=== PATIENT | female | born 1950 | race African-American/Black ===

== ENCOUNTER 2019-08-05 07:45 | Inpatient (IN) ==
--- NOTE | 2019-07-27 14:42 | EKG Report ---
Test Performed on : 07/27/2019 2:22:41 PM Test Reason : PAT Blood Pressure : / mmHG Vent. Rate : 080 BPM Atrial Rate : 080 BPM P-R Int : 156 ms QRS Dur : 090 ms QT Int : 384 ms P-R-T Axes : 056 012 073 degrees QTc Int : 442 ms Sinus rhythm. with fusion complexes and premature atrial complexes. with aberrant conduction. Anterior infarct , age undetermined Abnormal ECG When compared with ECG of 27-NOV-2017 13:14, fusion complexes are now present aberrant conduction. is now present T wave inversion now evident in Anterior leads Confirmed by Yosef LAWRENCE, Isidoro Keane ([id number]) on 07/28/2019 7:41:52 AM
[2019-07-27 16:23] LABS: HEMOGLOBIN A1C 5.2 % (4.8-6.0)
[2019-07-29 14:42] LABS: URINE SOURCE CLEAN CATCH
[2019-07-29 15:01] LABS: BASO# 0.05 X1000 (0.0-0.2); BASO% 0.8 % (0.0-0.8); EOS# 0.29 X1000 (0.0-0.7); EOS% 4.4 % (0.0-10.0); HEMATOCRIT 34.1 % (37.0-47.0); HEMOGLOBIN 11.3 g/dL (12.0-16.0); IMM GRAN# 0.05 X1000 (0.0-0.04); IMM GRAN% 0.8 % (0.0-0.5); LYMPH% 37.7 % (20.5-51.1); MCH 32.8 PG (27-31); MCHC 33.1 g/dL (33-37); MCV 98.8 FL (81-99); MONO# 0.47 X1000 (0.11-0.59); MONO% 7.1 % (1.7-9.3); MPV 9.9 FL (7.4-10.4); NEUT# 3.28 X1000 (1.4-6.5); NEUT% 49.2 % (42.2-75.2); PLT 298 X1000 (130-400); RBC 3.45 XMIL (4.2-5.4); RDW 12.5 % (11.5-14.5); WBC 6.64 X1000 (4.8-10.8)
[2019-07-29 15:02] LABS: BILIRUBIN URINE NEGATIVE (NEGATIVE); BLOOD URINE TRACE (NEGATIVE); COLOR YELLOW; GLUCOSE URINE NEGATIVE (NEGATIVE); INR 1.06; KETONE URINE NEGATIVE (NEGATIVE); LEUKOCYTES URINE NEGATIVE (NEGATIVE); NITRITE URINE NEGATIVE (NEGATIVE); PH URINE 5.5; PROTEIN URINE NEGATIVE (NEGATIVE); PROTIME 13.9 Seconds (11.0-16.0); SP GRAVITY URINE 1.015; TURBIDITY URINE HAZY (CLEAR); UR EPITHELIAL CELLS >10 /HPF (<10); URINE BACTERIA NEGATIVE /HPF; URINE RBC <10 /HPF (<10); URINE WBC <10 /HPF (<10); UROBILINOGEN URINE NORMAL (NORMAL)
[2019-07-29 15:03] LABS: PTT 32.2 Seconds (22.3-41.8)
[2019-07-29 15:13] LABS: CALCIUM 9.3 mg/dL (8.8-10.2); CREATININE 1.8 mg/dL (0.5-0.9)
[2019-08-05] MEDS ORDERED: NORCURON ONE (08:18)
[2019-08-05] MEDS ORDERED: COLACE ONE (08:18)
[2019-08-05] MEDS ORDERED: SODIUM CHLORIDE 0.9% 10 ML ONE (08:18)
[2019-08-05] MEDS ORDERED: XYLOCAINE-MPF 2% ONE (08:18)
[2019-08-05] MEDS ORDERED: REGLAN ONE (08:18)
[2019-08-05] MEDS ORDERED: QUELICIN (DOSE) ONE (08:18)
[2019-08-05] MEDS ORDERED: PEPCID ONE (08:18)
[2019-08-05] MEDS ORDERED: KEFZOL 1 GM/D5W 1 GM/50 ML IVPB ONE (08:19)
[2019-08-05] MEDS ORDERED: CELEBREX ONE (08:19)
[2019-08-05] MEDS ORDERED: LYRICA ONE (08:19)
[2019-08-05] MEDS ORDERED: DIPRIVAN 1% ONE (08:19)
[2019-08-05] MEDS ORDERED: LR 1,000 ML ONE (08:19)
[2019-08-05] MEDS ORDERED: DURAMORPH ONE (09:33)
[2019-08-05] MEDS ORDERED: MARCAINE 0.25% PF ONE (09:33)
[2019-08-05] MEDS ORDERED: TORADOL ONE (09:33)
[2019-08-05] MEDS ORDERED: EXPAREL 1.3% ONE (09:34)
[2019-08-05] MEDS ORDERED: CYKLOKAPRON 1,000 MG/NS 1,000 MG/100 ML IVPB ONE (09:34)
[2019-08-05] MEDS ORDERED: SODIUM CHLORIDE 0.9% ONE (09:34)
[2019-08-05] MEDS ORDERED: FENTANYL ONE (10:25)
[2019-08-05] MEDS ORDERED: EPHEDRINE ONE (10:39)
[2019-08-05] MEDS ORDERED: DECADRON ONE (10:50)
[2019-08-05] MEDS ORDERED: ZOFRAN ONE (10:53)
[2019-08-05] MEDS ORDERED: OFIRMEV 1000 MG/ISOTONIC SOLN 1,000 MG/100 ML BOTTLE ONE (10:57)
[2019-08-05 11:22] LABS: URINE SOURCE CATH
[2019-08-05 11:27] LABS: BILIRUBIN URINE NEGATIVE (NEGATIVE); BLOOD URINE TRACE (NEGATIVE); COLOR YELLOW; GLUCOSE URINE NEGATIVE (NEGATIVE); KETONE URINE NEGATIVE (NEGATIVE); LEUKOCYTES URINE NEGATIVE (NEGATIVE); NITRITE URINE NEGATIVE (NEGATIVE); PROTEIN URINE NEGATIVE (NEGATIVE); SP GRAVITY URINE 1.016; TURBIDITY URINE CLEAR (CLEAR); UROBILINOGEN URINE NORMAL (NORMAL)
[2019-08-05 11:28] LABS: UR EPITHELIAL CELLS <10 /HPF (<10); URINE BACTERIA NEGATIVE /HPF; URINE RBC <10 /HPF (<10); URINE WBC <10 /HPF (<10)
[2019-08-05] MEDS ORDERED: NS 1,000 ML ONE (12:47)
[2019-08-05] MEDS ORDERED: DILAUDID ONE (12:50)
--- NOTE | 2019-08-05 13:17 | Diag Imaging Result Doc PS360 ---
EXAM: SHOULDER 1 VIEW LEFT INDICATION: post op TECHNIQUE: One view COMPARISON: None. FINDINGS: There has been a very recent left shoulder arthroplasty. The arthroplasty hardware is in the expected position. At the proximal humeral shaft adjacent to the skin of the humeral component of the hardware, there is a small linear lucency that is suspicious for a nondisplaced periprosthetic fracture. There has been a recent preoperative studies available. No other fracture or significant intrinsic osseous lesion is appreciated. Surrounding soft tissues are grossly unremarkable by plain radiograph. IMPRESSION: Small linear lucency at the proximal humeral shaft as described that is suspicious for a nondisplaced periprosthetic fracture. Electronically signed by Reginald Walker 08/05/2019 1:14 PM
[2019-08-05] MEDS ORDERED: NS 1,000 ML IV SCH (14:15)
[2019-08-05] MEDS ORDERED: OXY IR PO PRN (14:15)
[2019-08-05] MEDS ORDERED: MORPHINE IV PRN ×3 (14:15)
[2019-08-05] MEDS ORDERED: ZOFRAN PO PRN (14:15)
--- NOTE | 2019-08-05 15:01 | OPERATIVE NOTE ---
PROCEDURE DATE : 08/05/2019 PREOPERATIVE DIAGNOSIS: Left glenohumeral arthritis with chronic rotator cuff tear. POSTOPERATIVE DIAGNOSIS: Left glenohumeral arthritis with chronic rotator cuff tear. PROCEDURE: Left reverse total shoulder arthroplasty with DePuy Delta Xtend, size 8 press-fit stem, a 38 + 3 humeral cup, a 38 + 2 mm lateralized Eccentric Glenosphere and a standard metaglene. SURGEON: Colby Barrera MD EXECUTIVE MANAGER: BAILEY Elizondo, who was necessary for proper positioning, retraction and manipulation of the extremity during the case. SECOND ENVIRONMENTAL PROGRAMS MANAGER: BAILEY Simon and Ajith Brown RN. ANESTHESIA: General. IV FLUIDS: 2000 mL lactated Ringer's. ESTIMATED BLOOD LOSS: 100 mL. COMPLICATIONS: None. INDICATION: The patient is a 69-year-old female, chronic history of pain and discomfort in her left shoulder. Her pain has progressed to affect her activities of daily living. Radiographic studies reveal findings consistent with glenohumeral arthritis and chronic retracted rotator cuff tear. Given the patient's findings, recommendation to proceed with left reverse total shoulder arthroplasty was offered. The risks and benefits of surgery were explained, including the risks of anesthesia, , bleeding, infection, failure to relieve pain, postoperative stiffness, nerve injury, blood clots, and other imponderables. All questions were answered. The patient and family wished to proceed with surgery. DETAILS OF OPERATION: The patient was taken to the operating room and placed supine on the operating table. Once adequate anesthesia was obtained, she was placed in semi- Bright beach chair position. The left shoulder was subsequently prepped and draped in usual sterile fashion. A standard deltopectoral incision was made with a skin knife. Hemostasis was obtained using electrocautery. The deltopectoral interval was then developed. Retractors were then placed. The clavipectoral fascia was then elevated as well as the retractor was placed in deep conjoined tendon. The subscapularis tendon was then identified and stay suture was placed. Approximately 1 c m medial to its insertion, it was released and was dislocated anteriorly. The patient did have evidence of chronic rotator cuff tear. The biceps tendon was released. A starting reamer was then passed in the intramedullary canal. Sequential reaming was conducted up to size 8. Intramedullary guide with the proximal humeral cutting block was pinned in position approximately 15 degrees of retroversion. The proximal humeral head was then resected. A protective disk was then placed. Attention was then turned to the glenoid. Circumferential dissection was performed with a deep knife. A guide was then placed in position and some tightness with difficulty of the exposure, therefore, a few millimeters of the proximal humerus was resected. Protective disk placed once again and the retractors were placed. The guidepin was placed in to position with guide. Reaming was then conducted. Central hole was then dilated and guidepin was removed. The wound was copiously irrigated with antibiotic pulsatile lavage. A standard metaglene was then impacted into position. Two locking screws were then placed as well as 2 nonlocking screws. The wound was copiously irrigated once again. A 38 eccentric +2 lateralized Glenosphere was then placed with eccentricity placed inferiorly. Attention then turned to the proximal humerus. The intramedullary guide was placed in position the proximal humerus was reamed. After this, the intramedullary canal was copiously irrigated with antibiotic pulsatile lavage. A size 8 Delta Xtend press-fit stem was then placed. Trial cup sizer was then placed and 38+ 3 humeral cup had excellent stability and range of motion. The trial cup was removed. The wound was copiously irrigated once again. A 38+ 3 humeral cup was then placed. The shoulder was reduced, carried through range of motion, had excellent stability and range of motion. Exparel was placed in the deep soft tissue. The wound was copiously irrigated. A #2 FiberWire was used to repair the subscapularis tendon. Remaining Exparel was placed in deep soft tissue as well as subcutaneous tissue. The wound was irrigated once again. A 2-0 Vicryl was used to repair the subcutaneous tissue, followed by running 2-0 Prolene. Benzoin and Steri-Strips applied. Adaptic, sterile 4x4, ABD pad, and tape was applied the left shoulder followed by shoulder immobilizer. All counts were correct. The patient tolerated the procedure well and was transferred to the recovery room in stable condition. cc: Colby Barrera MD MTDD
[2019-08-05] MEDS: TYLENOL PO SCH (17:39)
[2019-08-05] MEDS: KEFZOL 1 GM/D5W 1 GM/50 ML IVPB IV SCH (17:51)
[2019-08-05] MEDS: PERIDEX MT SCH (20:36)
[2019-08-05] MEDS: OXY IR PO PRN (20:37)
[2019-08-05] MEDS: PRILOSEC PO SCH (20:38)
[2019-08-06] MEDS: TYLENOL PO SCH ×3 (02:18→12:50)
[2019-08-06] MEDS: KEFZOL 1 GM/D5W 1 GM/50 ML IVPB IV SCH (02:59)
[2019-08-06] MEDS: PATIENT'S OWN MED OPH SCH ×2 (04:05→09:13)
[2019-08-06 06:45] LABS: HEMATOCRIT 29.8 % (37.0-47.0); HEMOGLOBIN 9.9 g/dL (12.0-16.0)
[2019-08-06 07:00] LABS: CREATININE 1.4 mg/dL (0.5-0.9)
[2019-08-06] MEDS ORDERED: SYNTHROID PO SCH (07:00)
--- NOTE | 2019-08-06 07:04 | ORTHOPAEDICS PROGRESS NOTE ---
DATE: 08/06/2019 SUBJECTIVE: The patient is a pleasant 69-year-old female who is 1 day status post left reverse total shoulder arthroplasty. She is currently resting comfortably. OBJECTIVE: The patient's dressing is intact. She is grossly neurovascularly intact distally. Able to flex her fingers. Good capillary refill distally. Her labs are pending. IMPRESSION: Postoperative day #1 status post left reverse shoulder arthroplasty. PLAN: At this point, we will plan on discharging home. The patient will follow up in the office on 08/17/2019. We will arrange for outpatient physical therapy. cc: Colby Barrera MD
[2019-08-06] MEDS ORDERED: LIPITOR PO SCH (09:00)
[2019-08-06] MEDS ORDERED: ZINC SULFATE PO SCH (09:00)
[2019-08-06] MEDS ORDERED: ESTRACE PO SCH (09:00)
[2019-08-06] MEDS ORDERED: SLOW-MAG PO SCH (09:00)
[2019-08-06] MEDS ORDERED: EFFEXOR XR PO SCH (09:00)
[2019-08-06] MEDS ORDERED: ALDACTONE PO SCH (09:00)
[2019-08-06] MEDS ORDERED: IMURAN PO SCH (09:00)
[2019-08-06] MEDS: PERIDEX MT SCH (09:11)
[2019-08-06] MEDS: PRILOSEC PO SCH (09:12)
[2019-08-06] MEDS: OXY IR PO PRN (09:12)
[2019-08-06 12:04] VITALS: BP 120/68
== END 2019-08-06 12:56 | disposition home health service (06) | DRG 483 ==
LOC: SURHOLD 07:45 → 4N 11:36
PROVIDERS: ADMIT Orthopaedic Surgery Adult Reconstructive Orthopaedic Surgery; ATTEND Orthopaedic Surgery Adult Reconstructive Orthopaedic Surgery